=== PATIENT | male | born 1970 | race Two or more races ===

== ENCOUNTER → 2017-03-09 | Outpatient (CLI) | payer BC ==
[2017-03-09 08:47] LABS: BASOPHILS # (AUTO) 0.24 10*3/UL; BASOPHILS % (AUTO) 2.6 % (0-1); EOSINOPHILS # (AUTO) 0.31 10*3/UL; EOSINOPHILS % (AUTO) 3.4 % (0-8); HEMATOCRIT 40.2 % (42.0-52.0); HEMOGLOBIN 14.2 g/dL (14.0-18.0); LYMPHOCYTES # (AUTO) 2.96 10*3/uL; MEAN CORPUSCULAR HEMOGLOBIN 30.1 PG (27-31); MEAN CORPUSCULAR HGB CONC 35.3 g/dL (33-37); MEAN CORPUSCULAR VOLUME 85.2 FL (80-90); MEAN PLATELET VOLUME 8.9 FL (7.4-12.2); MONOCYTES # (AUTO) 0.91 10*3/UL (0.3-0.8); NEUTROPHILS # (AUTO) 4.68 10*3/UL; NEUTROPHILS % (AUTO) 51.2 % (50-80); RED BLOOD COUNT 4.72 10^6/uL (4.70-6.10)
[2017-03-09 08:49] LABS: PLATELET MORPHOLOGY COMMENT NORMAL MORPHOLOGY (NORM); RBC MORPHOLOGY COMMENT NORMAL MORPHOLOGY (NORM); WBC MORPHOLOGY COMMENT NORMAL MORPHOLOGY (NORM)
[2017-03-09 09:43] LABS: BLOOD UREA NITROGEN 13 mg/dL (7-22); BUN/CREATININE RATIO 16.25 (6-20); CALCIUM 8.7 mg/dL (8.7-10.7); CHOL/HDL RATIO 5.94 RATIO (0-4.0); EST GLOMERULAR FILTRATION > 60 (>60 ml/min/1.73m(2)); HDL CHOLESTEROL 35 mg/dL (40-150); SERUM ALBUMIN 4.1 g/dL (3.5-4.8); SERUM CHOLESTEROL 208 mg/dL (120-200)
== END ==
LOC: LAB 08:29
PROVIDERS: ATTEND Nurse Practitioner Family
DX: Z00.00 Encounter for general adult medical examination without abnormal findings (principal)
CPT/HCPCS: 36415; 80053; 80061; 84443; 85025

== ENCOUNTER → 2017-03-15 | Outpatient (CLI) | payer BC, OTHER ==
--- NOTE | 2017-03-16 12:54 | DI ---
MRI LUMBAR SPINE SCAN WITHOUT AND WITH IV CONTRAST, 03/15/2017 10:02 AM: Clinical History: Acute right-sided low back pain with right sided sciatica. Previous Exam: 11/11/2013. Sequences: Pre and post contrast sagittal and axial T1 and T2 weighted scans. Contrast Dose: 20 mL of ProHance (279.3 mg/mL) The vertebral bodies are of normal height and size. There is severe disc space narrowing at L4-5 with moderate narrowing at L5-S1 and both level show desiccation change. The remaining disc spaces are of normal height. The cord terminates at T12, and the conus medullaris is normal. The T11-12 through L 3-4 disc spaces are normal. L4-5 shows evidence of previous surgery with resection of the inferior eddy lf of the spinous process of L4. There is enhancing tissue corresponding to the anterior extradural t issue that is hypointense on the precontrast scans and increases slightly on the postcontrast scan in dicating scar tissue. Scar tissue is also present surrounding the thecal sac posterolaterally on both sides. There is no canal or neural foraminal stenosis. L5-S1 has a minimally central bulging but not herniated disc without canal or neural foraminal stenosis. Readin. Status post partial resection of the L4 spinous process. It is difficult to assess the lamina of L4. There is scar tissue formation anteriorly at the L4-5 disc space without recurrent disc herniatio n as well as scar tissue formation posteriorly without canal or neural foraminal stenosis. 2. There is a bulging but not herniated disc without canal or neural foraminal stenosis at L5-S1. 3. The disc spaces from T11-12 through L3-4 are normal.
== END ==
LOC: MRI 09:57
PROVIDERS: ATTEND Nurse Practitioner Family
DX: M54.41 Lumbago with sciatica, right side (principal); M47.817 Spondylosis without myelopathy or radiculopathy, lumbosacral region
CPT/HCPCS: 72158